=== PATIENT | female | born 1985 | race Caucasian/White ===

== ENCOUNTER 2023-09-17 09:40 | Emergency (ER) | payer MEDICAID ==
[~2023-09-17] VITALS: Ht 165.1 cm; Wt 80.4 kg
[2023-09-17] MEDS ORDERED: AMOX-117 PO (09:51)
[2023-09-17] MEDS ORDERED: NEOM10SO7 LEFT EAR (09:51)
[2023-09-17 09:56] VITALS: BP 117/58; PULSE 98; RESP 16; TEMP 99.2; O2SAT 96
== END 2023-09-17 09:57 | disposition home or self-care (01) ==
LOC: ER 09:40
DX: H60.92 Unspecified otitis externa, left ear (principal); H66.92 Otitis media, unspecified, left ear
CPT/HCPCS: 99283